=== PATIENT | female | born 1970 | race Hispanic/Latino ===

== ENCOUNTER 2018-11-26 07:52 | Emergency (ER) | payer MEDICAID ==
[2018-11-26] MEDS ORDERED: Sodium Chloride 0.9% 1,000 ML IV STA (09:06)
[2018-11-26 09:26] LABS: BASO % 0.5 % (0.0-2.0); EOS # 0.1 K/uL (0.0-0.7); EOS % 2.6 % (0.0-4.0); HEMOGLOBIN 14.4 g/dL (11.0-16.0); LYMPH # 1.3 K/uL (1.0-4.3); LYMPH % 24.5 % (20.0-40.0); MEAN CELL VOLUME 86.1 fL (81.0-99.0); MEAN CORPUSCULAR HEMOGLOBIN 28.4 pg (27.0-31.0); MEAN PLATELET VOLUME 8.6 fL (7.2-11.7); MONO # 0.4 K/uL (0.0-0.8); NEUT # 3.5 K/uL (1.8-7.0); NEUT % 64.4 % (50.0-75.0); RBC 5.07 Mil/uL (3.80-5.20); RED CELL DISTRIBUTION WIDTH 14.7 % (11.5-14.5); WHITE BLOOD COUNT 5.5 K/uL (4.8-10.8)
[2018-11-26 09:37] LABS: HCG,QUALITATIVE URINE NEGATIVE (NEGATIVE)
[2018-11-26 09:40] LABS: ALB/GLOB RATIO 1.4 (1.0-2.1); ALBUMIN 4.3 g/dL (3.5-5.0); ALT/SGPT 30 U/L (9-52); AST/SGOT 29 U/L (14-36); BLOOD UREA NITROGEN 13 mg/dL (7-17); CALCIUM 9.2 mg/dl (8.6-10.4); GFR NON-AFRICAN AMERICAN > 60; LIPASE 131 U/L (23-300)
[2018-11-26 09:41] LABS: SQUAMOUS EPITHIAL 7 /hpf (0-5); URINE BILIRUBIN NEGATIVE (NEGATIVE); URINE BLOOD 2+ (NEGATIVE); URINE CLARITY Hazy (Clear); URINE COLOR Yellow (YELLOW); URINE GLUCOSE (UA) NORMAL (Normal); URINE LEUKOCYTE ESTERASE 1+ Leu/uL (Negative); URINE PROTEIN NEGATIVE (NEGATIVE); URINE UROBILINOGEN NORMAL mg/dL (0.2-1.0)
[2018-11-26] MEDS ORDERED: Sodium Chloride 0.9% 1,000 ML ONE (09:53)
--- NOTE | 2018-11-26 10:25 | C.PDOC ---
History Of Present Illness 48 year old female presents to the ED for evaluation of diffuse abdominal pain radiating to the lower back associated with vomiting x3 days. The patient reports having surgery September 29, 2018 in [facility] for an intr a-abdominal abscess where a drainage tube was placed and removed early October 2018. Per patient, during follow up she was told she developed gastroparesis and uterine prolapse. x1 episode of vomiting in the ED. Denies fever, chills, diarrhea, constipation, and any other associated symptoms. Time Seen by Provider: 11/26/18 08:03 Chief Complaint (Nursing): Abdominal Pain History Per: Patient History/Exam Limitations: no limitations Onset/Duration Of Symptoms: Days (x3) Current Symptoms Are (Timing): Still Present Location Of Pain/Discomfort: Diffuse Associated Symptoms: Vomiting Recent travel outside of the [place]: No Past Medical History Reviewed: Historical Data, Nursing Documentation, Vital Signs Vital Signs: Last Vital Signs Temp 97.9 F 11/26/18 07:57 Pulse 69 11/26/18 07:57 Resp 18 11/26/18 07:57 BP 125/86 11/26/18 07:57 Pulse Ox 98 11/26/18 07:57 Family History: States: Unknown Family Hx - Social History Hx Alcohol Use: No Hx Substance Use: No - Immunization History Hx Tetanus Toxoid Vaccination: No Hx Influenza Vaccination: No Hx Pneumococcal Vaccination: No Review Of Systems Except As Marked, All Systems Reviewed And Found Negative. Constitutional: Negative for: Fever, Chills Gastrointestinal: Positive for: Vomiting, Abdominal Pain (diffuse. ). Negative for: Diarrhea, Constipation Physical Exam - Physical Exam Appears: Non-toxic Skin: Normal Color, Warm, Dry Head: Atraumatic, Normacephalic Eye(s): bilateral: Normal Inspection Oral Mucosa: Moist Neck: Normal ROM, Supple Chest: Symmetrical, No Deformity Cardiovascular: Rhythm Regular, No Murmur Respiratory: Normal Breath Sounds, No Rales, No Rhonchi, No Wheezing Gastrointestinal/Abdominal: Soft, Tenderness (diffuse, greater on the left lower quadrant and lower abdomen. ), No Distention Extremity: Bilateral: Atraumatic, Normal Color And Temperature, Normal ROM Neurological/Psych: Oriented x3, Normal Speech, Normal Cognition ED Course And Treatment - Laboratory Results Result Diagrams: 11/26/18 09:20 11/26/18 09:20 Lab Results: Total Bilirubin 1.0 mg/dL (0.2-1.3) 11/26/18 09:20 AST 29 U/L (14-36) 11/26/18 09:20 ALT 30 U/L (9-52) 11/26/18 09:20 Alkaline Phosphatase 64 U/L (38-126) 11/26/18 09:20 Total Protein 7.5 g/dL (6.3-8.3) 11/26/18 09:20 Albumin 4.3 g/dL (3.5-5.0) 11/26/18 09:20 Globulin 3.2 gm/dL (2.2-3.9) 11/26/18 09:20 Albumin/Globulin Ratio 1.4 (1.0-2.1) 11/26/18 09:20 Lipase 131 U/L (23-300) 11/26/18 09:20 Urine Color Yellow (YELLOW) 11/26/18 09:20 Urine Clarity Hazy (Clear) 11/26/18 09:20 Urine pH 6.0 (5.0-8.0) 11/26/18 09:20 Ur Specific [place] 1.006 (1.003-1.030) 11/26/18 09:20 Urine Protein Negative mg/dL (NEGATIVE) 11/26/18 09:20 Urine Glucose (UA) Normal mg/dL (Normal) 11/26/18 09:20 Urine Ketones Negative mg/dL (NEGATIVE) 11/26/18 09:20 Urine Blood 2+ (NEGATIVE) H 11/26/18 09:20 Urine Nitrate Negative (NEGATIVE) 11/26/18 09:20 Urine Bilirubin Negative (NEGATIVE) 11/26/18 09:20 Urine Urobilinogen Normal mg/dL (0.2-1.0) 11/26/18 09:20 Ur Leukocyte Esterase 1+ Babs/uL (Negative) H 11/26/18 09:20 Urine WBC (Auto) 3 /hpf (0-5) 11/26/18 09:20 Urine RBC (Auto) 3 /hpf (0-3) 11/26/18 09:20 Ur Squamous Epith Cells 7 /hpf (0-5) H 11/26/18 09:20 Urine HCG, Qual Negative (NEGATIVE) 11/26/18 09:20 Urine HCG, Qual Negative (NEGATIVE) 01/12/19 09:20 O2 Sat by Pulse Oximetry: 98 (RA) Pulse Ox Interpretation: Normal - CT Scan/US US ABD/PELVIS Other Rad Studies (CT/US): Read By Radiologist CT/US Interpretation: FINDINGS: UTERUS: Measures 8.4 x 4.4 x 5.7 cm. Retroverted, normal in size and appearance. No fibroid or other mass lesion seen. ENDOMETRIUM: Measures 7.1 mm in diameter. Unremarkable. CERVIX: No ce rvical abnormality identified. RIGHT OVARY: Measures 1.8 x 1.0 x 2.0 cm. No solid mass. Normal flow. LEFT OVARY: Measures 3.2 x 1.6 x 1.9 cm. No solid mass. Normal flow. FREE FLUID: No significant free fluid noted. OTHER FINDINGS: None. IMPRESSION: Unremarkable pelvic ultrasound. US ABD Other Rad Studies (CT/US): Read By Radiologist CT/US Interpretation: FINDINGS: LIVER: Measures 15.4 cm. There is diffuse increased echogenicity of the liver parenchyma. No mass. No intrahepatic bile duct dilatation. GALLBLADDER: There are no gallstones, wall thickening or pericholecystic fluid. The sonographic Davidson's sign is negative. COMMON BILE DUCT: Measures 2.8 mm. No stones. No dilatation. PANCREAS: Unremarkable as visualized. No mass. No ductal dilatation. RIGHT KIDNEY: Measures 11.7cm. Normal echogenicity. No calculus, mass, or hydronephrosis. LEFT KIDNEY: Measures 11.7cm. Normal echogenicity. No calculus, mass, or hydronephrosis. SPLEEN: Normal in size and contour. No mass. AORTA: No aneurysmal dilatation. IVC: Unremarkable. OTHER FINDINGS: None. IMPRESSION: Fatty liver. No cholelithiasis or biliary dilatation. CT abdomen/pelvis Other Rad Studies (CT/US): Read By Radiologist, Radiology Report Reviewed CT/US Interpretation: Accession No. : [id number]. Patient Name / ID : ELDA SANTIAGO / [id number]. Exam Date : 11/26/2018 14:21:16 ( Approved ). Study Comment : Sex / Age : F / 48Y. Creator : Carmen Hollins MD. Dictator : Carmen Johns MD. Cvicu Nurse : Tractor Sweeper Driver : Carmen Hollins MD. Approver2 : Report Date : 11/26/2018 15:00:51. My Comment : . Date of service: 11/26/2018. PROCEDURE: CT Abdomen and Pelvis with contrast. HISTORY: Abdominal pain and vomiting. COMPARISON: None available. TECHNIQUE: CT scan of the abdomen and pelvis was performed after administration of intravenous contrast. Oral contrast was administered. Coronal and sagittal reformatted images were obtained. Contrast dose: 100 mL Visipaque 320. Radiation dose: Total exam DLP = 1137.88 mGy-cm. This CT exam was performed using one or more of the following dose reduction techniques: Automated exposure control, adjustment of the mA and/or kV according to patient size, and/or use of iterative reconstruction technique. FINDINGS: LOWER TH ORAX: The visualized lungs are clear. LIVER: Fatty liver. Normal in size with homogeneous enhancement. No gross lesion or ductal dilatation. GALLBLADDER AND BILE DUCTS: Well distended. No calcified gallstones, wall thickening or pericholecystic fluid. PANCREAS: Normal in size with homogeneous enhancement. No gross lesion or ductal dilatation. SPLEEN: Normal in size and appearance. ADRENALS: The right adrenal gland is normal. There is a 1.9 x 1.7 cm indeterminate low-attenuation nodule in the left adrenal gland. KIDNEYS AND URETERS: Normal in size with homogeneous enhancement. No hydronephrosis. No solid mass. VASCULATURE: No aortic aneurysm. No aortic atherosclerotic ca lcifications present. BOWEL: There is apparent mild circumferential mural thickening in the stomach and duodenum. The small bowel loops are normal in caliber. The colon is grossly normal in appearance. No bowel wall thickening or obstruction. APPENDIX: The appendix is not distinctly visualized. No inflammatory changes in the right lower quadrant. PERITONEUM: No free fluid. No free air. LYMPH NODES: Small subcentimeter mesenteric lymph nodes in the right lower quadrant are likely reactive. BLADDER: Well distended and normal in appearance. REPRODUCTIVE: The uterus is normal in size. BONES: No acute fracture. Within normal limits for the patient's age. OTHER FINDINGS: There is a moderate size sliding hiatal. IMPRESSION: No acute abdominal or pelvic abnormality. Moderate-sized sliding hiatal hernia. Apparent mild circumferential mural thickening in the stomach and duodenum is nonspecific and could be related to underdistention however nonspecific gastritis/duodenitis is also a consideration. Clinical follow-up is advised and if clinically indicated, correlation with EGD may be performed. Mild fatty liver. 1.9 cm indeterminate nodule in the left adrenal gland. CT scan/MRI of the abdomen without and with intravenous contrast with adrenal gland protocol is recommended for definitive evaluation Progress Note: Plan: Blood sent. US ABD Complete. US Pelvis/Transvag. Protonix. Urine culture. HCG Urine. Urinalysis. On re-evaluation patient feels better, tolerates po. She is stable to be d/c home with PMD and Circuit Breaker Assembler foll ow up. Disposition - Disposition Disposition: HOME/ ROUTINE Disposition Time: 16:19 Condition: STABLE Additional Instructions: Follow up with PMD and Circuit Breaker Assembler within 2-3 days. Return to ED if feel worse. Prescriptions: Pantoprazole Sodium [Protonix] 40 mg PO QAM #30 ect Ondansetron ODT [Zofran ODT] 4 mg PO .Q4-6H PRN #20 odt PRN Reason: Nausea/Vomiting Instructions: Nausea and Vomiting, Adult (DC), Gastroparesis (Delayed Gastric Emptying) (DC) Forms: [facility] (Uzbek) - Clinical Impression Clinical Impression: Abdominal pain, Vomiting - PA / COMBAT SYSTEMS OFFICER / Resident Statement MD/DO has reviewed & agrees with the documentation as recorded. - Scribe Statement The provider has reviewed the documentation as recorded by the Scribe (Kathleen Blanc) All medical record entries made by the Scribe were at my direction and personally dictated by me. I have reviewed the chart and agree that the record accurately reflects my personal performance of the history, physical exam, medical decision making, and the department course for this patient. I have also personally directed, reviewed, and agree with the discharge instructions and disposition.
--- NOTE | 2018-11-26 11:27 | US ---
Date of service: 11/26/2018 HISTORY: abd pain, pelvic pain, radiates to the rectum COMPARISON: None available. TECHNIQUE: Transabdominal and transvaginal pelvic ultrasound was performed. FINDINGS: UTERUS: Measures 8.4 x 4.4 x 5.7 cm. Retroverted, normal in size and appearance. No fibroid or other mass lesion seen. ENDOMETRIUM: Measures 7.1 mm in diameter. Unremarkable. CERVIX: No cervical abnormality identified. RIGHT OVARY: Measures 1.8 x 1.0 x 2.0 cm. No solid mass. Normal flow. LEFT OVARY: Measures 3.2 x 1.6 x 1.9 cm. No solid mass. Normal flow. FREE FLUID: No significant free fluid noted. OTHER FINDINGS: None. IMPRESSION: Unremarkable pelvic ultrasound.
--- NOTE | 2018-11-26 11:32 | US ---
Date of service: 11/26/2018 HISTORY: Abdominal pain and vomiting COMPARISON: None. TECHNIQUE: Sonographic evaluation of the abdomen. FINDINGS: LIVER: Measures 15.4 cm. There is diffuse increased echogenicity of the liver parenchyma. No mass. No intrahepatic bile duct dilatation. GALLBLADDER: There are no gallstones, wall thickening or pericholecystic fluid. The sonographic Davidson's sign is negative. COMMON BILE DUCT: Measures 2.8 mm. No stones. No dilatation. PANCREAS: Unremarkable as visualized. No mass. No ductal dilatation. RIGHT KIDNEY: Measures 11.7cm. Normal echogenicity. No calculus, mass, or hydronephrosis. LEFT KIDNEY: Measures 11.7cm. Normal echogenicity. No calculus, mass, or hydronephrosis. SPLEEN: Normal in size and contour. No mass. AORTA: No aneurysmal dilatation. IVC: Unremarkable. OTHER FINDINGS: None. IMPRESSION: Fatty liver. No cholelithiasis or biliary dilatation.
[2018-11-26] MEDS ORDERED: Iohexol 240 (50 ml) PO STA (12:05)
[2018-11-26] MEDS ORDERED: Iohexol 240 (50 ml) ONE (12:22)
[2018-11-26] MEDS ORDERED: Iodixanol 320 MG/ML 100 ML BOTTLE IV ONE (13:40)
--- NOTE | 2018-11-26 15:04 | CT ---
Date of service: 11/26/2018 PROCEDURE: CT Abdomen and Pelvis with contrast HISTORY: Abdominal pain and vomiting COMPARISON: None available. TECHNIQUE: CT scan of the abdomen and pelvis was performed after administration of intravenous contrast. Oral contrast was administered. Coronal and sagittal reformatted images were obtained. Contrast dose: 100 mL Visipaque 320 Radiation dose: Total exam DLP = 1137.88 mGy-cm. This CT exam was performed using one or more of the following dose reduction techniques: Automated exposure control, adjustment of the mA and/or kV according to patient size, and/or use of iterative reconstruction technique. FINDINGS: LOWER THORAX: The visualized lungs are clear. LIVER: Fatty liver. Normal in size with homogeneous enhancement. No gross lesion or ductal dilatation. GALLBLADDER AND BILE DUCTS: Well distended. No calcified gallstones, wall thickening or pericholecystic fluid. PANCREAS: Normal in size with homogeneous enhancement. No gross lesion or ductal dilatation. SPLEEN: Normal in size and appearance. ADRENALS: The right adrenal gland is normal. There is a 1.9 x 1.7 cm indeterminate low-attenuation nodule in the left adrenal gland KIDNEYS AND URETERS: Normal in size with homogeneous enhancement. No hydronephrosis. No solid mass. VASCULATURE: No aortic aneurysm. No aortic atherosclerotic calcifications present. BOWEL: There is apparent mild circumferential mural thickening in the stomach and duodenum. The small bowel loops are normal in caliber. The colon is grossly normal in appearance. No bowel wall thickening or obstruction. APPENDIX: The appendix is not distinctly visualized. No inflammatory changes in the right lower quadrant. PERITONEUM: No free fluid. No free air. LYMPH NODES: Small subcentimeter mesenteric lymph nodes in the right lower quadrant are likely reactive. BLADDER: Well distended and normal in appearance. REPRODUCTIVE: The uterus is normal in size. BONES: No acute fracture. Within normal limits for the patient's age. OTHER FINDINGS: There is a moderate size sliding hiatal. IMPRESSION: No acute abdominal or pelvic abnormality. Moderate-sized sliding hiatal hernia. Apparent mild circumferential mural thickening in the stomach and duodenum is nonspecific and could be related to underdistention however nonspecific gastritis/duodenitis is also a consideration. Clinical follow-up is advised and if clinically indicated, correlation with EGD may be performed. Mild fatty liver. 1.9 cm indeterminate nodule in the left adrenal gland. CT scan/MRI of the abdomen without and with intravenous contrast with adrenal gland protocol is recommended for definitive evaluation
[2018-11-26 16:34] VITALS: BP 128/74; PULSE 66; RESP 18; TEMP 98.1
[2018-11-26 17:00] VITALS: O2SAT 98
== END 2018-11-26 16:39 | disposition home or self-care (01) ==
LOC: C.ER 07:52
DX: R10.32 Left lower quadrant pain (principal); R11.10 Vomiting, unspecified
CPT/HCPCS: 74177; 76700; 76830; 76856; 80053; 81001; 83605; 83690; 84703; 85025; 87086; 96361; 96374; 96375; 99284; C9113; J2405; J7030; Q9966; Q9967